=== PATIENT | female | born 1985 | race Caucasian/White ===

== ENCOUNTER 2016-10-09 10:18 | Emergency (ER) | payer OTHER ==
[2016-10-09 10:24] VITALS: BP 134/91
[2016-10-09] MEDS ORDERED: ROCEPHIN IM ONE (10:43)
[2016-10-09] MEDS ORDERED: XYLOCAINE-MPF 1% INJ ONE (10:43)
--- NOTE | 2016-10-09 10:45 | PROVIDER DOCUMENTATION ---
HPI-General Adult - General Source: patient - History of Present Illness -Gen Adult Nature of Presenting Problems: Pt is a 31 yof who came to the ED with a cc of high blood sugar and a vaginal rash. Pt reports her blood sugar this morning was 350 at home when she got to the ED her blood sugar was 250. Pt reports it also hurts when she pees. Pt has a vaginal rash red and irritated. Location of Pain/Injury: reports: genitalia Pain Radiation: reports: no radiation Quality of Pain: reports: burning Severity: reports: mild Onset/Duration: reports: this morning Timing: reports: still present Modifying Factors: improves with: urinating Similar Symptoms Previously?: No Recently seen or treated by another doctor?: No <Winnie Briggs - Last Filed: 10/09/16 11:24> <Rajiv Hoover - Last Filed: 10/09/16 12:29> - General Chief Complaint: High Blood Sugar Stated Complaint: HIGH SUGAR/FEMALE Time Seen by Provider: 10/09/16 10:27 Allergies/Adverse Reactions: Patient Allergies Allergy/AdvReac Type Severity Reaction Status Date / Time sulfamethoxazole AdvReac NAUSEA Verified 10/09/16 10:52 [From Bactrim] trimethoprim [From Bactrim] AdvReac NAUSEA Verified 10/09/16 10:52 Home Medications: Ergocalciferol (Vitamin D2) [Vitamin D] 50,000 unit PO DIRECTED 08/30/15 Glipizide 10 mg PO BID 01/07/16 Lisinopril 2.5 mg PO DAILY 01/07/16 Sitagliptin Phosphate [Januvia] 1 tab PO DAILY 01/07/16 Review of Systems - Adult - REVIEW OF SYSTEMS - ADULT Constitutional: denies: chills, fever Eyes: denies: blurred vision, double vision Ears, Nose, Mouth & Throat: denies: nose pain, loose teeth Cardiovascular: reports: no symptoms reported Respiratory: reports: no symptoms reported Gastrointestinal: denies: diarrhea, nausea, vomiting Genitourinary: reports: dysuria. denies: hematuria, hesitency, urgency Musculoskeletal: reports: no symptoms reported Integumentary: reports: no symptoms reported Neurological: reports: no symptoms reported Psychiatric: reports: no symptoms reported Endocrine: reports: no symptoms reported Hematologic/Lymphatic: reports: no symptoms reported Allergic/Immunologic: reports: no symptoms reported All Other Systems: Reviewed and Negative <Winnie Briggs - Last Filed: 10/09/16 11:24> Past History - Adult - PAST MEDICAL HISTORY-ADULT Review of Records: reports: Old Records Reviewed, Nursing Assessment Review Major Childhood Illnesses: reports: denies history Cardiovascular: reports: denies history Respiratory: reports: denies history Gastrointestinal: reports: denies history Obstetrical/Gynecological: reports: denies history Genitourinary: reports: denies history Musculoskeletal: reports: denies history Neurological: reports: denies history Endocrine/Immune: reports: Diabetes Other Conditions: reports: denies history - PRIOR SURGERIES/PROCEDURES Surgical/Procedure History: reports: none - IMMUNIZATION STATUS Childhood Immunizations: See Nurse Assessment Flu Vaccine: See Nurse Assessment - FAMILY HISTORY Family History: reviewed, not pertinent <Winnie Briggs - Last Filed: 10/09/16 11:24> Physical Exam-General - PHYSICAL EXAM-ADULT Initial Vital Signs Reviewed: Yes - CONSTITUTIONAL General Appearance: appears well, alert, no apparent distress - EYES Eyes: PERRL/EOMI, pink conjunctivae - HEAD, EARS, NOSE, MOUTH & THROAT HENMT: normocephalic/atraumatic, moist mucous membranes, normal ENT inspection - NECK Neck: non-tender, full range of motion, normal inspection - RESPIRATORY Respiratory: chest non-tender, lungs clear, normal breath sounds - CARDIOVASCULAR Cardiovascular: normal peripheral pulses, regular rate, rhythm, no edema - GASTROINTESTINAL (ABDOMEN) Abdominal Exam: normal bowel sounds, non tender, soft - GENITOURINARY Female Genitalia/Pelvic Exam: other (red rash) - LYMPHATIC Lymphatic: no adenopathy - MUSCULOSKELETAL Back Exam: normal inspection, no CVA tenderness, no vertebral tenderness Extremity: normal range of motion, non-tender, normal gait - SKIN Integumentary: normal color, normal turgor, warm/dry - NEUROLOGIC Neurologic: grossly normal, no motor/sensory deficits - PSYCHIATRIC Psych/Mental Status: normal mood/affect, normal thought content, normal thought process, oriented x 3 <Winnie Briggs - Last Filed: 10/09/16 11:24> Progress - PLAN OF CARE/RESULTS Progress/Plan/Lab Results: Vital Signs - 24 hr 10/09/16 10:20 Temperature 97.6 F Pulse Rate 90 Respiratory 16 Rate Blood Pressure 134/91 O2 Sat by Pulse 100 Oximetry Vital Signs - 24 hr 10/09/16 10:20 Temperature 97.6 F Pulse Rate 90 Respiratory 16 Rate Blood Pressure 134/91 O2 Sat by Pulse 100 Oximetry Orders Category Date Time Status Finger Stick Blood Sugar (ED) DIRECTED Care 10/09/16 10:28 Active TEST-URINE [PREG] Stat Lab 10/09/16 10:28 Uncollected UA NIMS W/REFLEX CULT [URINALYSIS] Stat Lab 10/09/16 10:28 Uncollected CefTRIAXONE [Rocephin] Med 10/09/16 10:43 Discontinued 1 gm IM NOW ONE Lidocaine 1% Pf [Xylocaine-Mpf 1%] Med 10/09/16 10:43 Discontinued 5 ml INJ NOW ONE <Winnie Briggs - Last Filed: 10/09/16 11:24> - PLAN OF CARE/RESULTS Progress/Plan/Lab Results: Laboratory Results - last 24 hr 10/09/16 10/09/16 10/09/16 10:49 11:03 11:03 POC Glucose 276 H D Urine Source CLEAN CATCH Urine Color YELLOW Urine Turbidity CLEAR Urine pH 5.5 Ur Specific [place] 1.037 Urine Protein NEGATIVE Ur Glucose (Stick) >1000 A Ur Ketones (Stick) NEGATIVE Urine Blood NEGATIVE Urine Nitrite NEGATIVE Urine Bilirubin NEGATIVE Urobilinogen Dipstick NORMAL Urine Leukocytes NEGATIVE Urine WBC (Auto) <10 Urine RBC (Auto) <10 U Epithel Cells (Auto) <10 Urine Bacteria (Auto) NEGATIVE Urine Test NEGATIVE Vital Signs Temp Pulse Resp BP Pulse Ox 10/09/16 10:20 97.6 F 90 16 134/91 100 sulfamethoxazole [From Bactrim] Adverse Reaction (Verified 10/09/16 10:52) NAUSEA trimethoprim [From Bactrim] Adverse Reaction (Verified 10/09/16 10:52) NAUSEA Ergocalciferol (Vitamin D2) [Vitamin D] 50,000 unit PO DIRECTED 08/30/15 Glipizide 10 mg PO BID 01/07/16 Lisinopril 2.5 mg PO DAILY 01/07/16 Sitagliptin Phosphate [Januvia] 1 tab PO DAILY 01/07/16 I&O 10/08/16 10/09/16 10/10/16 06:59 06:59 06:59 Output Total 40 Balance -40 Laboratory 10/09/16 10/09/16 10/09/16 11:03 11:03 10:49 POC Glucose 276 H D Urine Source CLEAN CATCH Urine Color YELLOW Urine Turbidity CLEAR Urine pH 5.5 Ur Specific [place] 1.037 Urine Protein NEGATIVE Ur Glucose (Stick) >1000 A Ur Ketones (Stick) NEGATIVE Urine Blood NEGATIVE Urine Nitrite NEGATIVE Urine Bilirubin NEGATIVE Urobilinogen Dipstick NORMAL Urine Leukocytes NEGATIVE Urine WBC (Auto) <10 Urine RBC (Auto) <10 U Epithel Cells (Auto) <10 Urine Bacteria (Auto) NEGATIVE Urine Test NEGATIVE Orders Category Date Time Status Finger Stick Blood Sugar (ED) DIRECTED Care 10/09/16 10:28 Active TEST-URINE [PREG] Stat Lab 10/09/16 11:03 Completed UA NIMS W/REFLEX CULT [URINALYSIS] Stat Lab 10/09/16 11:03 Completed CefTRIAXONE [Rocephin] Med 10/09/16 10:43 Discontinued 1 gm IM NOW ONE Lidocaine 1% Pf [Xylocaine-Mpf 1%] Med 10/09/16 10:43 Discontinued 5 ml INJ NOW ONE <Rajiv Hoover - Last Filed: 10/09/16 12:29> Departure - Departure Time of Disposition Order: 11:24 Certified Medical Emergency: Emergent <Winnie Briggs - Last Filed: 10/09/16 11:24> - Departure Time of Disposition Order: 12:26 Certified Medical Emergency: Emergent <Rajiv Hoover - Last Filed: 10/09/16 12:29> - Departure DIAGNOSIS: Hyperglycemia, Skin rash Disposition: HOME 01 Condition: Good Prescriptions: Clotrimazole/Bmethasone Cream [Lotrisone Cream] 1 applicatn TOP BID #1 tube Referrals: Jasen Waterman MD [Primary Care Provider] - Attestation - Scribe Verification/Attestation Scribe:: Winine Briggs Acting as Scribe for:: Rajiv Hoover Scribe documention review:: This chart was documented by a scribe and accurately reflects the service the provider performed and the decisions made by the provider. <Winnie Briggs - Last Filed: 10/09/16 11:24> Physician Attestation
[2016-10-09 11:42] LABS: URINE CULTURE NEEDED? NO; URINE MICRO REVIEW NEEDED? NO; URINE SOURCE CLEAN CATCH
[2016-10-09 11:48] LABS: BILIRUBIN URINE NEGATIVE (NEGATIVE); BLOOD URINE NEGATIVE (NEGATIVE); COLOR YELLOW; GLUCOSE URINE >1000 mg/dL (NEGATIVE); LEUKOCYTES URINE NEGATIVE (NEGATIVE); NITRITE URINE NEGATIVE (NEGATIVE); PH URINE 5.5; PROTEIN URINE NEGATIVE (NEGATIVE); SP GRAVITY URINE 1.037; TURBIDITY URINE CLEAR (CLEAR); UR EPITHELIAL CELLS <10 /HPF (<10); URINE BACTERIA NEGATIVE /HPF; URINE RBC <10 /HPF (<10); URINE WBC <10 /HPF (<10); UROBILINOGEN URINE NORMAL (NORMAL)
== END 2016-10-09 12:39 | disposition home or self-care (01) ==
LOC: ED 10:18
DX: E11.65 Type 2 diabetes mellitus with hyperglycemia (principal); R21 Rash and other nonspecific skin eruption; R30.0 Dysuria; Z79.899 Other long term (current) drug therapy
CPT/HCPCS: 81001; 81025; 82948; 96372; J0696